=== PATIENT | female | born 1970 | race Caucasian/White ===

== ENCOUNTER → 2016-04-25 | Outpatient (CLI) | payer OTHER ==
[2016-04-25 15:35] VITALS: BP 135/87; PULSE 102; RESP 14; TEMP 97.7; BMI 32.4
--- NOTE | 2016-04-25 16:23 | P.HPBAR ---
Bariatric H&P - History & Physicial H&P Date: 04/25/16 History & Physicial: Visit/CC: band fill Patient initial contact: Initial weight: 113.398 kg Initial weight in pounds: 250.00 Height: 5 ft 5 in Initial BMI: 41.5 Last weight: Current weight: 88.405 kg Current weight in pounds: 194.90 Current BMI: 32.4 [place] body weight (based on NIH guidelines): 56.699 kg Excess body weight loss: 44.0% The patient is a 45 year-old F who presents for Bariatric Assessment. Patient resents for her band follow up. Review of Systems Constitutional: Reports as per HPI Past Medical History Past Medical History: No Reported History Additional Past Medical History / Comment(s): depression, anxiety History of Any Multi-Drug Resistant Organisms: None Reported Past Surgical History: Adenoidectomy, Bariatric Surgery, Cholecystectomy, Hysterectomy, Orthopedic Surgery, Tonsillectomy Additional Past Surgical History / Comment(s): lap band, left foot ORIF Past Anesthesia/Blood Transfusion Reactions: No Reported Reaction Past Psychological History: Anxiety, Depression Smoking Status: Never smoker Past Alcohol Use History: Rare Past Drug Use History: None Reported - Past Family History Mother Family Medical History: No Reported History Surgical - Exam Vital Signs Temp Pulse Resp BP 97.7 F 102 H 14 135/87 04/25/16 15:28 04/25/16 15:28 04/25/16 15:28 04/25/16 15:28 - General well developed, no distress - Eyes PERRL - ENT normal pinna - Neck no masses - Respiratory normal expansion - Cardiovascular Rhythm: regular - Abdomen Abdomen: soft, non tender Bariatric Assessment & Plan Plan: Patient LAP-BAND was adjusted. She had 1 mL added to her band. She will follow -up in 4 weeks. Bariatric Checklist Checklist: Plan: Checklist: EGD: 1. Hiatal hernia: 2. H. Pylori: HgbA1c: Vitamin D: Smoking: Never smoker Primary care physician referral: Christiano HernandezTate) Psychiatry clearance: Cardiology clearance: Sleep study: Diet journal: VTE risk score: VTE risk level: Rehab needs at discharge:
== END | disposition home or self-care (01) ==
LOC: BARWHC3 15:06
PROVIDERS: ATTEND Surgery
DX: Z48.815 Encounter for surgical aftercare following surgery on the digestive system (principal); Z68.32 Body mass index [BMI] 32.0-32.9, adult; Z98.84 Bariatric surgery status
CPT/HCPCS: 99212

== ENCOUNTER → 2016-05-23 | Outpatient (CLI) | payer OTHER ==
[2016-05-23 13:34] VITALS: BP 130/76; PULSE 78; RESP 16; TEMP 98.6; BMI 32.2
--- NOTE | 2016-05-23 13:53 | P.HPBAR ---
Bariatric H&P - History & Physicial H&P Date: 05/23/16 History & Physicial: Visit/CC: band fill Patient initial contact: Initial weight: 113.398 kg Initial weight in pounds: 250.00 Height: 5 ft 5 in Initial BMI: 41.5 Last weight: Current weight: 87.798 kg Current weight in pounds: 193.00 Current BMI: 32.2 [place] body weight (based on NIH guidelines): 56.699 kg Excess body weight loss: 45.5% The patient is a 45 year-old F who presents for Bariatric Assessment. The patient is requesting a fill of her LAP-BAND. She feels hungry. Past Medical History Past Medical History: No Reported History Additional Past Medical History / Comment(s): depression, anxiety History of Any Multi-Drug Resistant Organisms: None Reported Past Surgical History: Adenoidectomy, Bariatric Surgery, Cholecystectomy, Hysterectomy, Orthopedic Surgery, Tonsillectomy Additional Past Surgical History / Comment(s): lap band, left foot ORIF Past Anesthesia/Blood Transfusion Reactions: No Reported Reaction Past Psychological History: Anxiety, Depression Smoking Status: Never smoker Past Alcohol Use History: Rare Past Drug Use History: None Reported - Past Family History Mother Family Medical History: No Reported History Surgical - Exam Vital Signs Temp Pulse Resp BP 98.6 F 78 16 130/76 05/23/16 13:31 05/23/16 13:31 05/23/16 13:31 05/23/16 13:31 - General well developed, no distress - Eyes PERRL - ENT normal pinna - Neck no masses - Respiratory normal expansion - Cardiovascular Rhythm: regular - Abdomen Abdomen: soft, non tender Bariatric Assessment & Plan Plan: The patient LAP-BAND was adjusted. 0.5 mL was added to her band. She currently has 6 mL in the band. She'll follow-up in one to 2 months. Bariatric Checklist Checklist: Plan: Checklist: EGD: 1. Hiatal hernia: 2. H. Pylori: HgbA1c: Vitamin D: Smoking: Never smoker Primary care physician referral: Christiano HernandezSnelling) Psychiatry clearance: Cardiology clearance: Sleep study: Diet journal: VTE risk score: VTE risk level: Rehab needs at discharge:
== END | disposition home or self-care (01) ==
LOC: BARWHC3 12:43
PROVIDERS: ATTEND Surgery
DX: Z48.815 Encounter for surgical aftercare following surgery on the digestive system (principal); Z68.32 Body mass index [BMI] 32.0-32.9, adult
CPT/HCPCS: 99212

== ENCOUNTER → 2016-08-22 | Outpatient (CLI) | payer OTHER ==
[2016-08-22 15:10] VITALS: BP 126/77; PULSE 84; RESP 16; TEMP 98
--- NOTE | 2016-08-22 16:18 | P.HPBAR ---
Bariatric H&P - History & Physicial H&P Date: 08/22/16 History & Physicial: Visit/CC: Band Adj Patient initial contact: Initial weight: 113.398 kg Initial weight in pounds: 250.00 Height: Initial BMI: Last weight: Current weight: Current weight in pounds: Current BMI: [place] body weight (based on NIH guidelines): Excess body weight loss: The patient is a 46 year-old F who presents for Bariatric Assessment. The patient presents today for lab band follow up. She currently states she is hungry. She was sent to fill added to her band. Past Medical History Past Medical History: No Reported History Additional Past Medical History / Comment(s): depression, anxiety History of Any Multi-Drug Resistant Organisms: None Reported Past Surgical History: Adenoidectomy, Bariatric Surgery, Cholecystectomy, Hysterectomy, Orthopedic Surgery, Tonsillectomy Additional Past Surgical History / Comment(s): lap band, left foot ORIF Past Anesthesia/Blood Transfusion Reactions: No Reported Reaction Past Psychological History: Anxiety, Depression Smoking Status: Never smoker Past Alcohol Use History: Rare Past Drug Use History: None Reported - Past Family History Mother Family Medical History: No Reported History Surgical - Exam Vital Signs Temp Pulse Resp BP 98.0 F 84 16 126/77 08/22/16 15:05 08/22/16 15:05 08/22/16 15:05 08/22/16 15:05 - General well developed - Eyes PERRL - ENT normal pinna - Neck no masses - Respiratory normal expansion - Cardiovascular Rhythm: regular - Abdomen Abdomen: soft Bariatric Assessment & Plan Plan: The patient LAP-BAND was adjusted. She had 0.5 mL added to her band. She currently is 6.5 mL in the band. She was able require without difficulty. She' ll follow-up in 1-2 months. Bariatric Checklist Checklist: Plan: Checklist: EGD: 1. Hiatal hernia: 2. H. Pylori: HgbA1c: Vitamin D: Smoking: Never smoker Primary care physician referral: Christiano HernandezJoshua) Psychiatry clearance: Cardiology clearance: Sleep study: Diet journal: VTE risk score: VTE risk level: Rehab needs at discharge:
[2016-08-22 16:31] VITALS: BMI 31.1
== END | disposition home or self-care (01) ==
LOC: BARWHC3 14:54
PROVIDERS: ATTEND Surgery
DX: Z48.815 Encounter for surgical aftercare following surgery on the digestive system (principal); Z98.84 Bariatric surgery status
CPT/HCPCS: 99212